=== PATIENT | male | born 1960 ===

== ENCOUNTER → 2017-09-03 | Outpatient (CLI) | payer OTHER | END | disposition home or self-care (01) | LOC: RAD 12:35 | DX: M54.2 Cervicalgia (principal); M54.5 Low back pain ==

== ENCOUNTER → 2020-01-31 | Emergency (ER) | payer OTHER ==
[~2020-01-31] VITALS: Ht 185.4 cm; Wt 147.4 kg
[~2020-01-31] MED LIST: FORTAMET500 MG; KAPSPARGO SPRIN25 MG; PLAVIX75 MG; SYNTHROID300 MCG; TRICOR48 MG
== END | disposition left against medical advice (07) ==
LOC: ER 19:31
DX: Z53.21 Procedure and treatment not carried out due to patient leaving prior to being seen by health care provider (principal)

== ENCOUNTER 2020-03-01 10:15 | Outpatient (CLI) | payer OTHER | END 2020-03-01 10:24 | disposition home or self-care (01) | LOC: MAMO-SONO 10:15 → SONOGRAMA 10:15 | PROVIDERS: ATTEND Urology | DX: N20.0 Calculus of kidney (principal); N13.30 Unspecified hydronephrosis ==

== ENCOUNTER 2020-09-26 09:11 | Outpatient (CLI) | payer OTHER | END 2020-09-26 16:01 | disposition home or self-care (01) | LOC: SONOGRAMA 09:11 → MAMO-SONO 09:30 → SONOGRAMA 16:01 | PROVIDERS: ATTEND Urology | DX: N20.0 Calculus of kidney (principal); N13.39 Other hydronephrosis; N28.89 Other specified disorders of kidney and ureter ==

== ENCOUNTER 2025-03-05 09:10 | Outpatient (CLI) | payer OTHER | END 2025-03-05 09:11 | disposition home or self-care (01) | LOC: SONOGRAMA 09:10 | DX: R31.9 Hematuria, unspecified (principal) ==